=== PATIENT | female | born 1985 | race Caucasian/White ===

== ENCOUNTER 2023-07-27 14:21 | Emergency (ER) | payer OTHER, SELFPAY ==
[2023-07-27 14:24] VITALS: BP 144/99
--- NOTE | 2023-07-27 14:43 | ED.GENMED ---
History of Present Illness
General
Chief Complaint: Musculo-Skeletal Complaint
Source: patient
Time Seen by Provider: 07/27/23 14:39
Travel History
Have you had any contact with someone who has COVID-19?: No
Do you have any symptoms of coronavirus? Fever > 100 degrees, chills, cough, shortness of breath, sore throat, loss of taste or smell, muscle aches, or headache?: No
History of Present Illness
History of Present Illness:
37-year-old female presenting emergency department for evaluation after she injured her left ring finger while playing football stating the ball jammed into the finger now with soft tissue swelling with pain is around proximal and middle phalanx.
Patient is right-hand dominant. No other injuries were sustained.
Past History
Past History
ED Past Medical History: Hypothyroidism
ED Past Surgical History: Appendectomy, and Other
Social History
Tobacco: Non-smoker
Alcohol: Occasional
Drug: None
Personal:
Living: with family
Employment: Employed
Review of Systems
Review of Systems
All Other Systems: ROS reviewed and negative except as documented in HPI and ROS
Phy Exam
Physical Exam
Physical Exam:
GENERAL: Alert , in no apparent distress
EYE: conjunctiva clear
Head: Normocephalic atraumatic
NECK: Supple,
ENT: mmm.
LUNGS: no acute respiratory distress
NEUROLOGICAL: Alert and oriented
SKIN: Warm and dry, skin intact.
MUSCULOSKELETAL: Left hand: Soft tissue swelling of the proximal phalanx and PIP. Range of motion limited secondary to pain. Tenderness overlying this area as well. Extremities otherwise neurovascularly intact without other signs of trauma.
PSYCH: Normal and appropriate interaction.
Scores
Heart Failure Risk
Heart Failure Risk Score: Not Applicable
Heart Score for Chest Pain Patients
STEMI patient?: Not applicable
Withdrawal Assessment of Alcohol
Withdrawal Assessment Completed?: Not applicable
Course
Orders/Labs/Results
Orders:
Orders
07/27/23 14:27
Finger(s)/Thumb 2 View Lt [CR Finger(s)/thumb Min 2 Vw Lt] Urgent
Comment:
Reason For Exam: injury
Indicate Which Finger:: Ring Finger
07/27/23 14:42
Aluminium Finger Splint Left ONCE
Vital Signs
Initial and Last Documented VS:
Initial Vital Signs
Temp Pulse Resp BP Pulse Ox
98.3 F 97 16 144/99 97
07/27/23 14:24 07/27/23 14:24 07/27/23 14:24 07/27/23 14:24 07/27/23 14:24
Last Documented Vital Signs
Temp Pulse Resp BP Pulse Ox
98.3 F 97 16 144/99 97
07/27/23 14:24 07/27/23 14:24 07/27/23 14:24 07/27/23 14:24 07/27/23 14:24
MDM/Problems Addressed
Differential Diagnosis Includes:
Sprain, contusion, dislocation, fracture
MDM/Problems Addressed:
37-year-old female presenting emergency department for evaluation of left ring finger injury sustained while playing football. X-ray was ordered from triage and is ultimately negative for any acute fracture. Will place in finger splint for
comfort. Ice, elevation for pain control. Motrin/Tylenol as needed for pain. Otherwise stable for discharge home.
*Radiology
Radiology exam reviewed: preliminary read by ED provider (No fracture)
*Pulse Oximetry
Patient hypoxic: no
*Critical Care Note
Total Time (30-74mins, 75-104mins- exclusive of procedures): Not Applicable
ED Attending Note
-
Portions of this chart may have been created with voice recognition software.� Occasional wrong word or��sound alike� substitutions may have occurred due to the inherent limitations of voice recognition software.
Discharge Plan
Departure
Patient Disposition: Home (Routine Discharge)
Date of Disposition: 07/27/23
Time of Disposition: 14:43
Patient with high blood pressure during this ER visit?: Yes
Discharge Problem:
Sprain of left ring finger
Instructions: Finger Sprain (DC)
Interventions
Interventions:
*Risk Screen - Suicide Last Done: 07/27/23 14:24
*General Assessment Last Done: 07/27/23 14:24
*Neglect/Abuse Screening Last Done: 07/27/23 14:24
ED- Fall Risk Assessment Last Done: 07/27/23 16:22
*ED COVID-19 Vaccine History Last Done: 07/27/23 16:20
*Nursing Disposition Last Done: 07/27/23 16:24
ED-Musculoskeletal Assessment Last Done: 07/27/23 16:20
Discharge Date and Time
Discharge Date/Time: 07/27/23 16:25
== END 2023-07-27 16:25 | disposition home or self-care (01) ==
LOC: EMR 14:21
PROVIDERS: EMERGENCY PHYSICIAN Student in an Organized Health Care Education/Training Program; FAMILY PHYSICIAN Family Medicine
DX: S63.615A Unspecified sprain of left ring finger, initial encounter (principal); X58.XXXA Exposure to other specified factors, initial encounter; Y93.61 Activity, american tackle football; R03.0 Elevated blood-pressure reading, without diagnosis of hypertension
CPT/HCPCS: 99283; 29130; 73140